=== PATIENT | male | born 1985 | race Hispanic/Latino ===

== ENCOUNTER 2024-05-20 15:37 | Emergency (ER) | payer SELFPAY ==
[2024-05-20] MEDS ORDERED: Morphine 4 MG/ML VIAL ONE (17:54)
[2024-05-20] MEDS ORDERED: CEFAZOLIN 2 GM VIAL ONE (17:54)
[2024-05-20] MEDS ORDERED: Sodium Chloride 0.9% 100 ML ONE (17:55)
== END 2024-05-20 19:48 | disposition home or self-care (01) ==
LOC: ERS 15:37
DX: S67.195A Crushing injury of left ring finger, initial encounter (principal); S68.625A Partial traumatic transphalangeal amputation of left ring finger, initial encounter; W23.0XXA Caught, crushed, jammed, or pinched between moving objects, initial encounter; Y93.89 Activity, other specified; Y92.69 Other specified industrial and construction area as the place of occurrence of the external cause
CPT/HCPCS: 96365; J2272

== ENCOUNTER 2024-05-29 05:59 | Day surgery (SDC) | payer SELFPAY ==
[2024-05-29] MEDS ORDERED: Midazolam HCl 2 mg/2 ml Vial ONE (09:32)
[2024-05-29] MEDS ORDERED: CEFAZOLIN 2 GM VIAL ONE (09:33)
[2024-05-29] MEDS ORDERED: Sodium Chloride 0.9% 100 ML ONE (09:33)
[2024-05-29] MEDS ORDERED: PROPOFOL 20 ML ONE (09:38)
[2024-05-29] MEDS ORDERED: Lidocaine 1% PF 5 ML VIAL ONE (09:38)
[2024-05-29] MEDS ORDERED: Bacitracin Zinc Ointment 30 gm TUBE ONE (10:14)
[2024-05-29] MEDS ORDERED: Lidocaine 1% (PF) 30 ML VIAL ONE (14:43)
== END 2024-05-29 11:20 | disposition home or self-care (01) ==
LOC: ERS 05:59 → SDC 09:03
PROVIDERS: ATTEND Orthopaedic Surgery
PROC: 0HQQXZZ Repair Finger Nail, External Approach (ICD-10-PCS; principal; 2024-05-29)
PROC: 0PSV04Z Reposition Left Finger Phalanx with Internal Fixation Device, Open Approach (ICD-10-PCS; principal; 2024-05-29)
DX: S62.635B Displaced fracture of distal phalanx of left ring finger, initial encounter for open fracture (principal); W23.1XXA Caught, crushed, jammed, or pinched between stationary objects, initial encounter; Y99.0 Civilian activity done for income or pay
CPT/HCPCS: 99284; A6223; J2001; J2250; J2704